=== PATIENT | female | born 1960 | race Caucasian/White ===

== ENCOUNTER 2017-11-06 08:31 | Day surgery (SDC) | payer OTHER ==
[2017-11-05 14:59] VITALS: BMI 27.1
[2017-11-06] MEDS ORDERED: Oxymetazoline HCl 0.05% ( 15 ML ) ONE ×2 (09:18→10:19)
[2017-11-06] MEDS ORDERED: Midazolam HCl 2 mg/2 ml Vial ONE ×2 (10:12→10:22)
[2017-11-06] MEDS ORDERED: Scopolamine 1.5 mg/72 hour Patch ONE (10:12)
[2017-11-06] MEDS ORDERED: Lidocaine 1% w/Epinephrine 1:200K 30 ML VIAL ONE (10:20)
[2017-11-06] MEDS ORDERED: Fentanyl 100 MCG/2 ML VIAL ONE (10:22)
[2017-11-06] MEDS ORDERED: Promethazine HCl 25 MG/ML VIAL ONE (12:01)
[2017-11-06] MEDS ORDERED: traMADol HCl 50 MG TAB ONE (13:27)
--- NOTE | 2017-11-07 12:34 | OP ---
DATE OF PROCEDURE: 11/06/2017 PREOPERATIVE DIAGNOSES: 1. Chronic sphenoid sinusitis. 2. Chronic bilateral rhinosinusitis. 3. Bilateral inferior turbinate hypertrophy. POSTOPERATIVE DIAGNOSES: 1. Chronic sphenoid sinusitis. 2. Chronic bilateral rhinosinusitis. 3. Bilateral inferior turbinate hypertrophy. PROCEDURES: 1. Bilateral endoscopic sinus surgery, total ethmoidectomies. 2. Bilateral endoscopic sinus surgery, maxillary antrostomies. 3. Bilateral endoscopic sinus surgery, frontal sinusotomies. 4. Bilateral endoscopic sinus surgery, sphenoidotomies. 5. Bilateral inferior turbinate submucosal resection. 6. Intraoperative image guided set up calibration and surgery. SURGEON: Neel Sheehan M.D. ESTIMATED BLOOD LOSS: 20 mL. COMPLICATIONS: None. ANESTHESIA: GETA. PROCEDURE: The patient was taken to the operating room and placed on the table. General endotrachea l anesthesia was obtained by the Anesthesia staff. Tube was secured in the left lower lip. The viktoria ent was placed in the beach chair position. Following this, Afrin pledgets were placed in the nasal cavity. The patient was prepped and draped for standard nasal procedure. The landmark image guided system was then set up and calibrated, it was noted to be within 0.1 mm of accuracy. Following this, the pledgets were removed from the nasal cavity. 1% lidocaine with 1:100,000 epinephrine was inject ed into the inferior turbinates and middle turbinates and lateral nasal wall bilaterally. Following this, the middle turbinates were gently medialized using the 0 degree scope and a [place] elevator. Th e uncinate process was anteriorly fractured using the ball-ended probe. The uncinate process was the n removed bilaterally using the upbiting [place] forceps and a microdebrider. Following this, the natural maxillary sinus ostia was identified with a ball-ended probe and was gently widened using the straight microdebrider and straight [place] forceps under image guidance. Following this, the eth moidal bulla was identified and was punctured on its medial and inferior aspect bilaterally and it wa s removed using the straight microdebrider and curved microdebrider. Following this, the grand lamel la was identified and was punctured into the posterior ethmoidal cells and working from posterior to anterior, the ethmoidal cells were opened in a mucosal-sparing technique. Following this, the 45-deg ree scope and the 40 degree image guided radenoid blade was then used to further open the frontal rec ess and frontal sinus ostias bilaterally. Following this, the 0 degree scope and the image guided sy stem was used to identify and open the left sphenoid sinus, on the right sphenoid marked thickening o f the bone of the anterior face of the sphenoid saw complete inclusion of the sphenoid sinus. This w as punctured using image-guided [place] tip suction and widened using a 0 degree sphenoid punch. Fol lowing this, the sinus was full of markedly hypertrophy mucosa, scarring and spongy bone present. Th e majority of this was removed using straight forceps and a 2.9 mm microdebrider. Following this, th e nasal cavity was irrigated. MeroPacks were placed within the middle meatus and within the right sp henoid sinus ostia. The nasal cavity was irrigated. The patient tolerated the procedure well. The inferior turbinates were then punctured with the submucosal microdebrider and submucosal resection wa s performed of the anterior inferior portions of the inferior turbinates bilaterally.
--- NOTE | 2017-11-08 00:18 | EKG ---
Test Reason : PREOP Blood Pressure : / mmHG Vent. Rate : 072 BPM Atrial Rate : 072 BPM P-R Int : 164 ms QRS Dur : 076 ms QT Int : 404 ms P-R-T Axes : 079 084 074 degrees QTc Int : 442 ms Normal sinus rhythm Right atrial enlargement Borderline ECG No previous ECGs available Confirmed by Garrison TORRES ([id number]) on 11/08/2017 12:18:11 AM Referred By: SOL Confirmed By:Garrison TORRES
== END 2017-11-06 14:15 | disposition home or self-care (01) ==
LOC: SDC 08:31
PROVIDERS: ATTEND Otolaryngology Plastic Surgery within the Head & Neck
PROC: 09TW8ZZ Resection of Right Sphenoid Sinus, Via Natural or Artificial Opening Endoscopic (ICD-10-PCS; principal; 2017-11-06)
PROC: 09TU8ZZ Resection of Right Ethmoid Sinus, Via Natural or Artificial Opening Endoscopic (ICD-10-PCS; principal; 2017-11-06)
PROC: 09TL0ZZ Resection of Nasal Turbinate, Open Approach (ICD-10-PCS; principal; 2017-11-06)
PROC: 099S8ZZ Drainage of Right Frontal Sinus, Via Natural or Artificial Opening Endoscopic (ICD-10-PCS; principal; 2017-11-06)
PROC: 09TV8ZZ Resection of Left Ethmoid Sinus, Via Natural or Artificial Opening Endoscopic (ICD-10-PCS; principal; 2017-11-06)
PROC: 099R8ZZ Drainage of Left Maxillary Sinus, Via Natural or Artificial Opening Endoscopic (ICD-10-PCS; principal; 2017-11-06)
PROC: 099Q8ZZ Drainage of Right Maxillary Sinus, Via Natural or Artificial Opening Endoscopic (ICD-10-PCS; principal; 2017-11-06)
PROC: 09TX8ZZ Resection of Left Sphenoid Sinus, Via Natural or Artificial Opening Endoscopic (ICD-10-PCS; principal; 2017-11-06)
PROC: 099T8ZZ Drainage of Left Frontal Sinus, Via Natural or Artificial Opening Endoscopic (ICD-10-PCS; principal; 2017-11-06)
DX: J32.3 Chronic sphenoidal sinusitis (principal); J32.0 Chronic maxillary sinusitis; J32.1 Chronic frontal sinusitis; J34.3 Hypertrophy of nasal turbinates; J45.909 Unspecified asthma, uncomplicated; H26.9 Unspecified cataract; F90.9 Attention-deficit hyperactivity disorder, unspecified type; E89.0 Postprocedural hypothyroidism; F41.9 Anxiety disorder, unspecified; M79.7 Fibromyalgia; Z83.3 Family history of diabetes mellitus; Z82.49 Family history of ischemic heart disease and other diseases of the circulatory system; Z79.51 Long term (current) use of inhaled steroids; Z79.899 Other long term (current) drug therapy; Z88.2 Allergy status to sulfonamides; Z88.5 Allergy status to narcotic agent; Z88.8 Allergy status to other drugs, medicaments and biological substances; Z91.040 Latex allergy status; Z98.890 Other specified postprocedural states
CPT/HCPCS: 36415; 85014; 93005; 93010; 96374; J0131; J2250; J2550; J3010